=== PATIENT | female | born 1940 | race Caucasian/White ===

== ENCOUNTER 2018-02-01 15:29 | Inpatient (IN) | payer MEDICARE, OTHER ==
--- NOTE | 2018-02-01 16:02 | ERNOTE ---
Dyspnea - General Presenting Symptoms: shortness of breath Time Seen by Provider: 02/01/18 15:53 Source: patient Exam Limitations: no limitations - Immun/Allergies/Home Medications Immunizations: IMMUNIZATION HX Immunizations Up to Date Yes History of Influenza Vaccine Yes Hx Pneumococcal Vaccination Yes Allergies/Adverse Reactions: Allergies venom-honey bee [bee venom (honey bee)] Allergy (Verified 07/30/15 01:17) penicillin G Adverse Reaction (Intermediate, Verified 07/30/15 01:17) Itching Sulfa (Sulfonamide Antibiotics) Adverse Reaction (Verified 07/30/15 01:17) Home Medications: HOME MEDICATIONS Aspirin [Aspirin Enteric Coated] 81 mg PO DAILY #0 tablet.dr 06/02/12 [Last Taken 01/09/15] Atorvastatin Calcium [Lipitor] 40 mg PO HS #30 tablet 06/02/12 [Last Taken 01/09] Multivitamin [Animal Shapes] 1 each PO DAILY 01/10/15 [Last Taken 01/09/15] Nitroglycerin [Nitro-Bid 2% Ointment] 1 inch TD Q6H packet 01/10/15 [Last Taken Unknown] Pantoprazole Sodium [Protonix] 20 mg PO DAILY 01/10/15 [Last Taken 01/09/15] Folic Acid 0.8 mg PO DAILY 05/29/15 [Last Taken Unknown] Lisinopril [Zestril] 10 mg PO DAILY 05/29/15 [Last Taken Unknown] Spironolactone [Aldactone] 25 mg PO DAILY 05/29/15 [Last Taken Unknown] glipiZIDE [Glucotrol Xl] 5 mg PO DAILY 05/29/15 [Last Taken Unknown] epinephrine 0.3 mg/0.3 mL injection, auto-injector 0.3 mg IM Q10-15M PRN #1 ea 01/29/18 [Last Taken Unknown] Furosemide [Lasix] 60 mg PO QAM 02/01/18 [Last Taken Unknown] - History of Present Illness Narrative: Patient been progressively more short of breath over the last 3-4 days and states that she is coughing up some phlegm now Severity: moderate 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 Initiating event: Reports: upper resp illness Frequency of episodes: Reports: occassional episodes Modifying Factors - (Improves): Reports: rest Modifying Factors (Worsens): Reports: activity Associated Symptoms-Dyspnea: Reports: cough Review of Systems - Review of Systems Constitutional: Present: See HPI EYE: Present: no symptoms reported ENT: Present: no symptoms reported Respiratory: Present: See HPI Cardiology: Present: no symptoms reported Gastrointestinal/Abdominal: Present: no symptoms reported Genitourinary: Present: no symptoms reported Musculoskeletal: Present: no symptoms reported Skin: Present: no symptoms reported Neurological: Present: no symptoms reported Endocrine: Present: no symptoms reported Hematologic/Lymphatic: Present: no symptoms reported Psych: Present: no symptoms reported Medical History (Last Updated 02/01/18 @ 16:24 by Arvind Madrigal RN) Congestive heart failure Diabetes mellitus type II, non insulin dependent Gastroesophageal reflux Heel callus Hx of CABG Hyperlipidemia Hypertension S/P arthroscopic surgery of right knee S/P wrist surgery Surgical History: Surgical History (Last Updated 02/01/18 @ 16:24 by Arvind Madrigal RN) H/O hernia repair History of cardiac cath History of cholecystectomy Social History: Preferred Language Citizen Of [place] Do you have any mandaeism or No cultural preference? Smoking Status Never smoker Abuse History No History of abuse Psych History Hx of Depression Alcohol Use none Drug Use none Physical Exam - Physical Exam General Appearance: Present: wd/wn, alert, mild distress Head Exam: Present: normal inspection, no evidence of injury Eye Exam: Normal inspection: bilateral, PERRL: bilateral Ears, Nose, Throat: Present: normal ENT inspection, H, normal pharynx Neck: Present: normal inspection, nontender Respiratory: Present: no respiratory distress, no accessory muscle use, chest nontender, lungs clear, other - fine coarse breath sounds Cardiovascular/Chest: Present: regular rate, rhythm, no murmur, normal peripheral pulses, extra beats Gastrointestinal/Abdominal: Present: normal bowel sounds, nontender, nondistended, soft, no organomegaly Rectal Exam: Present: deferred Pelvic Exam: Present: deferred Back Exam: Present: normal inspection, normal range of motion Extremity Exam: Present: normal inspection, non-tender, normal range of motion, extremity edema - chronic dependent Neurological Exam: Present: alert, oriented, normal mood/affect Skin Exam: Present: normal color, warm/dry Lymphatic Exam: Present: no adenopathy ED Progress - Results and Orders Patient's Lab Results:: I have reviewed the patient's lab results. - Vital Signs Patient's Vital Signs:: I have reviewed the patient's vital signs. Vital Signs: Vital Signs 02/01/18 15:40 02/01/18 15:56 Pulse Rate 83 95 Respiratory Rate 16 Blood Pressure 158/100 H O2 Sat by Pulse Oximetry 95 - EKG EKG: atrial fibrillation EKG read: Reviewed by me - X-Ray X-Ray #1 X-Ray: chest - chest x-ray reviewed by me Interpretation: Reviewed by me - Progress/Reassessment Chief Complaint: Dyspnea Plan - Plan Plan: When questioned about the underlying atrial fibrillation the patient was unable to give me any clear history on that. He states that she has been short of breath for 2-3 weeks and is getting progressively worse, and I suspect that possibly this is all from atrial fibrillation. I'm going to give the patient a dose of Lovenox tonight and the attending physician can get an echocardiogram in the morning to try to see if there is anything else going on in there. I am suspecting that she may need to be on anticoagulation for 4 weeks before we consider any cardioversion. We will place a Mustafa catheter in the short-term, as the patient states she has a weak bladder and we would like to do I's and O' s in any event. Departure Clinical Impression: CHF exacerbation Qualifiers: Heart failure type: systolic Qualified Code(s): I50.23 - Acute on chronic systolic (congestive) heart failure Atrial fibrillation Qualifiers: Atrial fibrillation type: unspecified Qualified Code(s): I48.91 - Unspecified atrial fibrillation - Departure Disposition: Still a patient Condition: Fair Referrals: Chente Plata DO [Primary Care Provider] -
[2018-02-01 16:30] LABS: Hematocrit 34.7 % (37.0-47.0); Hemoglobin 10.7 gm/dL (12.5-16.0); Mean Cell Volume 83.8 fl (78-100); Mean Corpuscular Hemoglobin 25.8 pg (27-31); Mean Corpuscular Hgb Conc 30.8 g/dl (32-36); Mean Platelet Volume 11.1 fl (8-12.5); Neutrophil # 4.9 K/mm3 (1.3-6.0); Neutrophil % 55.4 % (42-75.0); Platelet Count 205 K/mm3 (150-450); Red Blood Count 4.14 M/mm3 (4.2-5.4); Red Cell Distribution Width 15.8 % (11.5-14.0); White Blood Count 8.8 K/mm3 (4.0-10.5)
[2018-02-01 16:49] LABS: Troponin I Less than 0.017 ng/ml (0.00-0.10)
[2018-02-01 16:51] LABS: ALT 24 U/L (19-67); AST 22 U/L (0-48); Albumin * 3.4 gm/dl (3.4-5.0); Alkaline Phosphatase * 97 U/L (50-170); Anion Gap 15.2 mmol/L (6.8-13.8); BNP * 1353 pg/mL (5-550); BUN/Creatinine Ratio 13.9 (9.0-21.6); Bilirubin, Total 0.8 mg/dL (0.0-1.1); Blood Urea Nitrogen 15 mg/dL (3-23); Calcium * 8.8 mg/dL (7.9-10.9); Carbon Dioxide 23.7 mmol/L (24-32.6); Chloride 106 mmol/L (97-106); Glucose * 138 mg/dL (70-110); Potassium 3.9 mmol/L (3.4-4.6); Sodium 141 mmol/L (132-142)
[2018-02-01] MEDS ORDERED: FUROSEMIDE 10 MG/ML VIAL IV ONE (16:58)
[2018-02-01] MEDS ORDERED: FUROSEMIDE 10 MG/ML VIAL ONE (17:30)
[2018-02-01] MEDS ORDERED: ENOXAPARIN SODIUM 100 MG/ML SYRG SC ONE ×2 (17:47→18:11)
[2018-02-01] MEDS ORDERED: ENOXAPARIN SODIUM 30 MG/0.3 ML SYRG SC STA (18:07)
[2018-02-01] MEDS ORDERED: ENOXAPARIN SODIUM 100 MG/ML SYRG SC STA (18:09)
[2018-02-01] MEDS ORDERED: ENOXAPARIN SODIUM 30 MG/0.3 ML SYRG SC ONE (18:11)
[2018-02-01] MEDS ORDERED: EPINEPHrine 0.3 MG DISP.SYRIN IM PRN (20:10)
[2018-02-01] MEDS ORDERED: NITROGLYCERIN 0.4 MG/TAB BTL SL PRN (20:10)
[2018-02-01] MEDS ORDERED: FUROSEMIDE 10 MG/ML VIAL IV SCH (20:30)
[2018-02-01] MEDS ORDERED: ATORVASTATIN CALCIUM 40 MG TABLET PO SCH (21:00)
[2018-02-01] MEDS: SPIRONOLACTONE 25 MG TABLET PO SCH (21:09)
[2018-02-01] MEDS: ASPIRIN 81 MG TABLET.DR PO SCH (21:09)
[2018-02-01] MEDS ORDERED: WARFARIN SODIUM 5 MG TABLET PO ONE (21:30)
[2018-02-01 21:44] LABS: Prothrombin Time (Patient) 10.6 Seconds (9.0-11.0)
[2018-02-01 21:45] LABS: INR 1.06 INR (0.90-1.10)
--- NOTE | 2018-02-01 21:50 | HP ---
Chief Complaint - Chief Complaint Date of Service: 02/01/18 Time of Service: 20:00 Chief Complaint: Shortness of breath, erythema, rapid weight gain and increased edema lower extr History of Present Illness: 77 years old female adm to the hospital with reports of dyspnea on exertion, increased edema to lower extremities, weight gain and nasal drainage with cough x1 month or more.She denies fever, chills, drainage from leg, chest pain or palpitation.Pt stated she have missed several days dose of all her home medications. Her son was in the hospital and she was more concern about his health and forget to take her medications. She also like to have the taste of salt in her food and have cut back on the amount of salt she use. For the past 3 -4 days the dyspnea getting progressively worse, she is unable to sleep in her bed and have been up most of the might due to coughing. Her son is feeling much better today and she is not doing so well so she decide to come to [facility] ER. While in ER CXR: Finding constant with acute CHF exacerbation, BNP 1353, she had Lasix 80mg x1 and had Mustafa cath inserted for correct I/O.Plan of care discussed with pt, she verbalized understanding and agrees. Medical History (Last Reviewed 02/01/18 @ 19:20 by Susana Blackwood RN) Congestive heart failure Diabetes mellitus type II, non insulin dependent Gastroesophageal reflux Heel callus Hx of CABG Hyperlipidemia Hypertension Myocardial infarct S/P arthroscopic surgery of right knee S/P wrist surgery Surgical History: Surgical History (Last Reviewed 02/01/18 @ 19:20 by Susana Blackwood RN) H/O hernia repair History of cardiac cath History of cholecystectomy Family History: Family History (Last Updated 02/01/18 @ 21:23 by NICO Padilla) Other Patient's brother is Patient's father is Patient's mother is Social History: Patient Lives/Resources With Spouse 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 Smoking Status Never smoker Have you smoked in the past 12 No months Do you dip or chew tobacco No Abuse History No History of abuse Psych History Hx of Depression Alcohol Use none Drug Use none Review Of Systems (GEN) - Review of Systems Generalized/Overall Review: Present: Weight gain EENTM: Present: No Symptoms Reported Respiratory: Present: Cough, Shortness of Breath, Orthopnea Cardiac: Present: No Symptoms Reported Abdominal: Present: No Symptoms Reported Genitourinary: Present: No Symptoms Reported Musculoskeletal: Present: Joint Swelling, Other - lower extr edema Neurological: Present: No Symptoms Reported Skin: Present: Other - erythema and blisters Endocrine: Present: No Symptoms Reported Immunizations: IMMUNIZATION HX Immunizations Up to Date Yes History of Influenza Vaccine Yes Hx Pneumococcal Vaccination Yes Allergies/Adverse Reactions: Allergies Allergy/AdvReac Type Severity Reaction Status Date / Time venom-honey bee Allergy Verified 07/30/15 01:17 [bee venom (honey bee)] penicillin G AdvReac Intermediate Itching Verified 07/30/15 01:17 Sulfa (Sulfonamide AdvReac Verified 07/30/15 01:17 Antibiotics) Home Medications: HOME MEDICATIONS Atorvastatin Calcium [Lipitor] 40 mg PO HS #30 tablet 06/02/12 [Last Taken 01/09] Multivitamin [Animal Shapes] 1 each PO DAILY 01/10/15 [Last Taken 01/09/15] Pantoprazole Sodium [Protonix] 20 mg PO DAILY 01/10/15 [Last Taken 01/09/15] Folic Acid 0.8 mg PO DAILY 05/29/15 [Last Taken Unknown] Lisinopril [Zestril] 10 mg PO DAILY 05/29/15 [Last Taken Unknown] Spironolactone [Aldactone] 25 mg PO DAILY 05/29/15 [Last Taken Unknown] glipiZIDE [Glucotrol Xl] 5 mg PO DAILY 05/29/15 [Last Taken Unknown] epinephrine 0.3 mg/0.3 mL injection, auto-injector 0.3 mg IM Q10-15M PRN #1 ea 01/29/18 [Last Taken Unknown] Aspirin [Aspirin Enteric Coated] 81 mg PO HS 02/01/18 [Last Taken Unknown] Furosemide [Lasix] 60 mg PO QAM 02/01/18 [Last Taken Unknown] Nitroglycerin 0.4 mg SL PRN PRN MDD 3 02/01/18 [Last Taken Unknown] Exam - Exam Vital Signs: Vital Signs - Last Taken Temp 36.7 C 02/01/18 17:53 Pulse 93 02/01/18 18:40 Resp 16 02/01/18 18:40 BP 162/97 H 02/01/18 18:40 Pulse Ox 94 02/01/18 18:40 Constitutional: Present: Alert, Oriented x3, Cooperative, Middle aged, Morbidly obese ENT Exam: Present: hearing grossly normal Eye Exam: bilateral eye: normal inspection Neck: Present: full range of motion Back Exam: Present: normal inspection Breasts: Present: Exam deferred Respiratory: Present: chest non-tender, no respiratory distress, decreased breath sounds, crackles, other - dyspnea on exertion Cardiovascular/Chest: Present: normal peripheral pulses, no chest tenderness, no gallop, irregularly irregular, edema Peripheral Pulses: dorsalis-pedis (R): 2+, dorsalis-pedis (L): 2+ Abdomen: Present: Normal bowel sounds, soft, nontender, nondistended Extremity: Present: inflammation, lower extremity edema, pedal edema, swelling, other - cellulitis, erythema, warm and tender to touch and swelling. Skin Exam: Present: other - cellulitis Lymphatic: Present: no adenopathy Neurologic: Present: oriented x 3, depressed affect, other - pt very tearful Appearance: Present: appropriate appearance, appropriate insight Eye contact: Present: cooperative, good eye contact Thoughts: Present: normal thought pattern, no apparent hallucination Diagnostic Studies: Abnormal Lab Results 02/01/18 02/01/18 Range/Units 16:25 16:25 RBC 4.14 L (4.2-5.4) M/mm3 Hgb 10.7 L (12.5-16.0) gm/dL Hct 34.7 L (37.0-47.0) % MCH 25.8 L (27-31) pg MCHC 30.8 L (32-36) g/dl RDW 15.8 H (11.5-14.0) % Carbon Dioxide 23.7 L (24-32.6) mmol/L Anion Gap 15.2 H (6.8-13.8) mmol/L Est GFR (Non-Af Amer) 53 L D (60-130) mL/min Random Glucose 138 H (70-110) mg/dL B-Natriuretic Peptide 1353 H (5-550) pg/mL Laboratory Results WBC 8.8 K/mm3 (4.0-10.5) 02/01/18 16:25 RBC 4.14 M/mm3 (4.2-5.4) L 02/01/18 16:25 Hgb 10.7 gm/dL (12.5-16.0) L 02/01/18 16:25 Hct 34.7 % (37.0-47.0) L 02/01/18 16:25 MCV 83.8 fl (78-100) 02/01/18 16:25 MCH 25.8 pg (27-31) L 02/01/18 16: MCHC 30.8 g/dl (32-36) L 02/01/18 16:25 RDW 15.8 % (11.5-14.0) H 02/01/18 16:25 Plt Count 205 K/mm3 (150-450) 02/01/18 16:25 MPV 11.1 fl (8-12.5) 02/01/18 16:25 Immature Gran % (Auto) 0.20 % (0.001-0.429) 02/01/18 16: Immature Gran # (Auto) 0.02 K/mm3 (0.000-0.0310) 02/01/18 16:25 Neutrophils % 55.4 % (42-75.0) 02/01/18 16:25 Lymphocytes % 32.9 % (20-51) 02/01/18 16:25 Monocytes % 8.4 % (0.0-9) 02/01/18 16:25 Eosinophils % 2.4 % (0.0-3.0) 02/01/18 16:25 Basophils % 0.7 % (0.0-1.0) 02/01/18 16: Nucleated RBC % 0.0 k/mm3 (0-1) 02/01/18 16:25 Neutrophils # 4.9 K/mm3 (1.3-6.0) 02/01/18 16:25 Lymphocytes # 2.90 k/mm3 (1.5-3.5) 02/01/18 16: Monocytes # 0.7 k/mm3 (0.0-1.0) 02/01/18 16: Eosinophils # 0.2 k/mm3 (0.0-0.7) 02/01/18 16:25 Absolute Basophils 0.1 k/mm3 (0.0-0.1) 02/01/18 16:25 Sodium 141 mmol/L (132-142) 02/01/18 16:25 Plasma Sodium 142 mmol/L (130-142) 02/01/18 16:25 Potassium 3.9 mmol/L (3.4-4.6) 02/01/18 16:25 Chloride 106 mmol/L (97-106) 02/01/18 16:25 Carbon Dioxide 23.7 mmol/L (24-32.6) L 02/01/18 16:25 Anion Gap 15.2 mmol/L (6.8-13.8) H 02/01/18 16:25 BUN 15 mg/dL (3-23) 02/01/18 16:25 Creatinine 1.08 mg/dL (0.4-1.4) 02/01/18 16:25 Est GFR (Non-Af Amer) 53 mL/min (60-130) L D 02/01/18 16:25 BUN/Creatinine Ratio 13.9 (9.0-21.6) 02/01/18 16:25 Random Glucose 138 mg/dL (70-110) H 02/01/18 16:25 Calcium 8.8 mg/dL (7.9-10.9) 02/01/18 16:25 Calcium Adj for Albumin 9.0 mg/dL (8.4-10.2) 02/01/18 16:25 Magnesium 2.0 mg/dL (1.2-2.8) 02/01/18 16:25 Total Bilirubin 0.8 mg/dL (0.0-1.1) 02/01/18 16:25 AST 22 U/L (0-48) 02/01/18 16:25 ALT 24 U/L (19-67) 02/01/18 16:25 Alkaline Phosphatase 97 U/L (50-170) 02/01/18 16:25 Troponin I Less than 0.017 ng/ml (0.00-0.10) 02/01/18 16:25 B-Natriuretic Peptide 1353 pg/mL (5-550) H 02/01/18 16:25 Total Protein 7.0 gm/dL (6.2-8.2) 02/01/18 16:25 Albumin 3.4 gm/dl (3.4-5.0) 02/01/18 16:25 CXR- Finding constant with acute CHF exacerbation Assessment/Plan - Narrative Narrative: CHF [id number] CXR- Finding constant with acute CHF exacerbation pt missed several days out the month of her medication, due to focusing on her son who is in the hospital. BNP 1353 Lasix 80mg x1 given in ER, will continue with Lasix 40mg IV BID Aldactone 25mg now and then daily Mustafa cath for correct I/O and weight pt daily. Monitor CMP daily 02/08/2013 Last Echo Septal akinesia, there is inferior wall akinesia, thin bright LV wall segment suggest MD. Left atrium severely dilated. Right atrium is moderately dilated. Mild MR, right ventricular systolic pressure elevated 55mmHg. Pulmonary HTN.LV EF 60% 2D-Echo tomorrow New Onset A-fib Continue with Telemetry In ER seen on EKG-Afib Chadz score 4 Lovenox 115mg Sc x1 given continue with Lovenox 115mg BID and Coumadin 5mg INR daily and pharmacy to dose Diabetes Accu-check and continue with home dose of medications Consistent carb Low sodium diet Cellulitis lower extre with increased erythema, warmth, unbroken blisters and tender to touch Cleocin 300mg IV Q8hr - Assessment/Plan (1) CHF exacerbation Problem: Acute Qualifiers: Heart failure type: systolic Qualified Code(s): I50.23 - Acute on chronic systolic (congestive) heart failure (2) Diabetes mellitus Problem: Chronic (3) Acute on chronic systolic CHF (congestive heart failure) Problem: Acute (4) Coronary artery disease Problem: Chronic (5) Hyperlipidemia Problem: Chronic (6) Hypertension Problem: Chronic (7) Cellulitis Problem: Acute Qualifiers: Site of cellulitis of extremity: lower extremity (8) GERD (gastroesophageal reflux disease) Problem: Acute (9) Atrial fibrillation Problem: Acute Qualifiers: Atrial fibrillation type: unspecified Qualified Code(s): I48.91 - Unspecified atrial fibrillation (10) Postnasal drip Problem: Acute
[2018-02-01] MEDS: LORATADINE 10 MG TABLET PO SCH (22:28)
[2018-02-02] MEDS: CLINDAMYCIN PHOSPHATE 300 MG in DEXTROSE 5 % IN WATER 50 ML IV SCH ×8 (00:04→23:39)
[2018-02-02 04:24] LABS: Prothrombin Time (Patient) 10.8 Seconds (9.0-11.0)
[2018-02-02 04:25] LABS: INR 1.08 INR (0.90-1.10)
[2018-02-02 04:37] LABS: Anion Gap 11.1 mmol/L (6.8-13.8); BUN/Creatinine Ratio 12.4 (9.0-21.6); Bilirubin, Total 0.7 mg/dL (0.0-1.1); Ca. Corrected For Albumin 8.7 mg/dL (8.4-10.2); Calcium * 8.2 mg/dL (7.9-10.9); Carbon Dioxide 28.1 mmol/L (24-32.6); Chol/HDL Risk Ratio 3.2 mg/dL (3.3-4.4); Potassium 3.2 mmol/L (3.4-4.6); TSH * 1.967 uIU/mL (0.358-3.74); Total Protein 6.2 gm/dL (6.2-8.2)
[2018-02-02] MEDS ORDERED: ENOXAPARIN SODIUM 60 MG/0.6 ML SYRG SC SCH (07:00)
[2018-02-02] MEDS: ENOXAPARIN SODIUM 80 MG, ENOXAPARIN SODIUM 30 MG SC SCH ×4 (07:25→19:40)
[2018-02-02] MEDS: LISINOPRIL 10 MG TABLET PO SCH (09:14)
[2018-02-02] MEDS: SPIRONOLACTONE 25 MG TABLET PO SCH (09:14)
[2018-02-02] MEDS: LORATADINE 10 MG TABLET PO SCH (09:14)
[2018-02-02] MEDS: PANTOPRAZOLE SODIUM 20 MG TABLET.DR PO SCH (09:14)
[2018-02-02] MEDS: glipiZIDE 5 MG TAB.SR.24H PO SCH (09:14)
[2018-02-02] MEDS: MULTIVITAMINS 1 TAB TAB.CHEW PO SCH (09:14)
[2018-02-02] MEDS: FUROSEMIDE 10 MG/ML VIAL IV SCH ×2 (09:15→17:55)
[2018-02-02] MEDS: FOLIC ACID 0.4 MG TABLET PO SCH (09:15)
[2018-02-02] MEDS ORDERED: WARFARIN SODIUM 5 MG TABLET PO SCH (17:00)
[2018-02-02] MEDS ORDERED: ROSUVASTATIN CALCIUM 20 MG TABLET PO SCH (21:00)
[2018-02-02] MEDS: ASPIRIN 81 MG TABLET.DR PO SCH (21:07)
[2018-02-03 05:33] LABS: INR 1.2 INR (0.90-1.10)
[2018-02-03] MEDS: ENOXAPARIN SODIUM 80 MG, ENOXAPARIN SODIUM 30 MG SC SCH ×2 (06:54)
--- NOTE | 2018-02-03 07:15 | DS ---
<Chente Plata - Last Filed: 02/18/18 08:03> Description of Stay: Patient was seen and evaluated by hospitalist, Irina Stevens. Agree with narrative and plan. Patient admitted with acute chf exacerbation and new onset atrial fibrillation. She was diuresed and shortness of breath improved. She was started on coumadin for anticoagulation. She does not need bridging with lovenox , this will not be needed at discharge. Her rate was well controlled. She was educated to avoid sodium. She will follow up with cardiology. Results and Findings: Pending Mircobiology Results 02/01/18 04:00 Blood Blood Culture - Preliminary Lab Pending Results 02/01/18 02/01/18 02/01/18 16:25 16:25 21:30 WBC 8.8 RBC 4.14 L Hgb 10.7 L Hct 34.7 L MCV 83.8 MCH 25.8 L MCHC 30.8 L RDW 15.8 H Plt Count 205 MPV 11.1 Immature Gran % (Auto) 0.20 Immature Gran # (Auto) 0.02 Neutrophils % 55.4 Lymphocytes % 32.9 Monocytes % 8.4 Eosinophils % 2.4 Basophils % 0.7 Nucleated RBC % 0.0 Neutrophils # 4.9 Lymphocytes # 2.90 Monocytes # 0.7 Eosinophils # 0.2 Absolute Basophils 0.1 PT 10.6 INR (Anticoag Therapy) 1.06 Sodium 141 Plasma Sodium 142 Potassium 3.9 Chloride 106 Carbon Dioxide 23.7 L Anion Gap 15.2 H BUN 15 Creatinine 1.08 Est GFR (Non-Af Amer) 53 L D BUN/Creatinine Ratio 13.9 Random Glucose 138 H Calcium 8.8 Calcium Adj for Albumin 9.0 Magnesium 2.0 Total Bilirubin 0.8 AST 22 ALT 24 Alkaline Phosphatase 97 Troponin I Less than 0.017 B-Natriuretic Peptide 1353 H Total Protein 7.0 Albumin 3.4 Triglycerides Cholesterol LDL Cholesterol VLDL Cholesterol HDL Cholesterol Cholesterol/HDL Ratio TSH 02/02/18 02/02/18 02/03/18 04:00 04:00 05:13 WBC RBC Hgb Hct MCV MCH MCHC RDW Plt Count MPV Immature Gran % (Auto) Immature Gran # (Auto) Neutrophils % Lymphocytes % Monocytes % Eosinophils % Basophils % Nucleated RBC % Neutrophils # Lymphocytes # Monocytes # Eosinophils # Absolute Basophils PT 10.8 12.0 H INR (Anticoag Therapy) 1.08 1.20 H Sodium 140 Plasma Sodium 140 Potassium 3.2 L Chloride 104 Carbon Dioxide 28.1 Anion Gap 11.1 BUN 13 Creatinine 1.05 Est GFR (Non-Af Amer) 54 L BUN/Creatinine Ratio 12.4 Random Glucose 112 H Calcium 8.2 Calcium Adj for Albumin 8.7 Magnesium Total Bilirubin 0.7 AST 19 ALT 21 Alkaline Phosphatase 90 Troponin I B-Natriuretic Peptide Total Protein 6.2 Albumin 3.0 L Triglycerides 99 Cholesterol 153 LDL Cholesterol 86 VLDL Cholesterol 20 HDL Cholesterol 47 Cholesterol/HDL Ratio 3.2 L TSH 1.967 Disposition: Home self-care Condition: Fair Referrals: Chente Plata DO [Primary Care Provider] - One Week Leida Plata [Pharmacy] - 02/06/18 1:30 pm ([facility]) Problem Oriented Discharge Instructions to Patient/Family: Warfarin: What You Need to Know, Warfarin Coagulopathy, Heart Failure, [id number], Atrial Fibrillation, [id number], CHF Patient Instructions Additional Patient Instructions (free text): -Please make TCM appointment unless assisted discharge. Thank you! Dorothy @ [phone].Follow up with Dr. Plata on 02-12-18 @ 8:15am. Prescriptions (Any new or edited meds): Furosemide [Lasix] 80 mg PO DAILY #30 tab Warfarin Sodium [Coumadin] 5 mg PO DAILY@1700 #30 tab Complete Home Medications List: Complete Home Medication List: Atorvastatin Calcium [Lipitor] 40 mg PO HS #30 tab 06/02/12 Multivitamin [Animal Shapes] 1 ea PO DAILY 01/10/15 Pantoprazole Sodium [Protonix] 20 mg PO DAILY 01/10/15 Folic Acid 0.8 mg PO DAILY 05/29/15 Lisinopril [Zestril] 10 mg PO DAILY 05/29/15 Spironolactone [Aldactone] 25 mg PO DAILY 05/29/15 glipiZIDE [Glucotrol Xl] 5 mg PO DAILY 05/29/15 epinephrine 0.3 mg/0.3 mL injection, auto-injector 0.3 mg IM Q10-15M PRN #1 ea 01/29/18 Nitroglycerin 0.4 mg SL PRN PRN MDD 3 02/01/18 Furosemide [Lasix] 80 mg PO DAILY #30 tab 02/03/18 Warfarin Sodium [Coumadin] 5 mg PO DAILY@1700 #30 tab 02/03/18 ascorbic acid (vitamin C) 500 mg capsule mg PO 02/06/18 aspirin 81 mg chewable tablet 81 mg PO DAILY 02/06/18 blood sugar diagnostic strips See Dose Instructions .ROUTE .MEDSUPPLY #20 ea carvedilol 3.125 mg tablet 12.5 mg PO BID tab 02/06/18 cholecalciferol (vitamin D3) 400 unit capsule 400 unit PO DAILY 02/06/18 loratadine-pseudoephedrine ER 10 mg-240 mg tablet,extended [id number] 1 tab PO DAILY #90 tab 02/12/18 <RodneyGianniwillem - Last Filed: 02/18/18 19:27> (1) CHF exacerbation Problem: Acute Qualifiers: Heart failure type: systolic Qualified Code(s): I50.23 - Acute on chronic systolic (congestive) heart failure (2) Diabetes mellitus Problem: Chronic (3) Acute on chronic systolic CHF (congestive heart failure) Problem: Acute (4) Coronary artery disease Problem: Chronic (5) Hyperlipidemia Problem: Chronic (6) Hypertension Problem: Chronic (7) Cellulitis Problem: Acute Qualifiers: Site of cellulitis of extremity: lower extremity (8) GERD (gastroesophageal reflux disease) Problem: Acute (9) Atrial fibrillation Problem: Acute Qualifiers: Atrial fibrillation type: unspecified Qualified Code(s): I48.91 - Unspecified atrial fibrillation (10) Postnasal drip Problem: Acute Description of Stay: Date of Admission 02/01/2018 Date of Discharge 02/03/2018 Hospital Course Mrs. Hodge a 77 years old female adm to the hospital with New onset Afib and CHF exacerbation secondary to non-compliance. pt report cough, increased lower extr edema, warmth and erythema to left leg more than right. She has dyspnea on exertion and orthopnea. During this adm her CXR: Finding constant with acute CHF exacerbation, BNP 1353. Adm weight was 114.75kg and at discharge weight 109.3kg.she had Lasix 80mg x1 and had Mustafa cath inserted for correct I/ O.Cellulitis improving gradually to lower extremities.She will continue with cleocin, Coumadin 5mg daily. Plan of care discussed with pt, she verbalized understanding and agrees. Procedures Performed: none Results and Findings: Pending Mircobiology Results 02/01/18 04:00 Blood Blood Culture - Preliminary NO GROWTH 24 HOURS Lab Pending Results 02/01/18 02/01/18 02/01/18 16:25 16:25 21:30 WBC 8.8 RBC 4.14 L Hgb 10.7 L Hct 34.7 L MCV 83.8 MCH 25.8 L MCHC 30.8 L RDW 15.8 H Plt Count 205 MPV 11.1 Immature Gran % (Auto) 0.20 Immature Gran # (Auto) 0.02 Neutrophils % 55.4 Lymphocytes % 32.9 Monocytes % 8.4 Eosinophils % 2.4 Basophils % 0.7 Nucleated RBC % 0.0 Neutrophils # 4.9 Lymphocytes # 2.90 Monocytes # 0.7 Eosinophils # 0.2 Absolute Basophils 0.1 PT 10.6 INR (Anticoag Therapy) 1.06 Sodium 141 Plasma Sodium 142 Potassium 3.9 Chloride 106 Carbon Dioxide 23.7 L Anion Gap 15.2 H BUN 15 Creatinine 1.08 Est GFR (Non-Af Amer) 53 L D BUN/Creatinine Ratio 13.9 Random Glucose 138 H Calcium 8.8 Calcium Adj for Albumin 9.0 Magnesium 2.0 Total Bilirubin 0.8 AST 22 ALT 24 Alkaline Phosphatase 97 Troponin I Less than 0.017 B-Natriuretic Peptide 1353 H Total Protein 7.0 Albumin 3.4 Triglycerides Cholesterol LDL Cholesterol VLDL Cholesterol HDL Cholesterol Cholesterol/HDL Ratio TSH 02/02/18 02/02/18 02/03/18 04:00 04:00 05:13 WBC RBC Hgb Hct MCV MCH MCHC RDW Plt Count MPV Immature Gran % (Auto) Immature Gran # (Auto) Neutrophils % Lymphocytes % Monocytes % Eosinophils % Basophils % Nucleated RBC % Neutrophils # Lymphocytes # Monocytes # Eosinophils # Absolute Basophils PT 10.8 12.0 H INR (Anticoag Therapy) 1.08 1.20 H Sodium 140 Plasma Sodium 140 Potassium 3.2 L Chloride 104 Carbon Dioxide 28.1 Anion Gap 11.1 BUN 13 Creatinine 1.05 Est GFR (Non-Af Amer) 54 L BUN/Creatinine Ratio 12.4 Random Glucose 112 H Calcium 8.2 Calcium Adj for Albumin 8.7 Magnesium Total Bilirubin 0.7 AST 19 ALT 21 Alkaline Phosphatase 90 Troponin I B-Natriuretic Peptide Total Protein 6.2 Albumin 3.0 L Triglycerides 99 Cholesterol 153 LDL Cholesterol 86 VLDL Cholesterol 20 HDL Cholesterol 47 Cholesterol/HDL Ratio 3.2 L TSH 1.967 Discharge Location: Home Discharge Activity: Activity as tolerated Discharge Diet: Low salt, Low fat/chol
--- NOTE | 2018-02-03 08:32 | ECHO ---
This report is available in the EMR
[2018-02-03] MEDS: FUROSEMIDE 10 MG/ML VIAL IV SCH ×2 (10:23→10:30)
[2018-02-03] MEDS: FOLIC ACID 0.4 MG TABLET PO SCH (10:24)
[2018-02-03] MEDS: glipiZIDE 5 MG TAB.SR.24H PO SCH (10:25)
[2018-02-03] MEDS: SPIRONOLACTONE 25 MG TABLET PO SCH (10:25)
[2018-02-03] MEDS: LORATADINE 10 MG TABLET PO SCH (10:25)
[2018-02-03] MEDS: MULTIVITAMINS 1 TAB TAB.CHEW PO SCH (10:25)
[2018-02-03] MEDS: CLINDAMYCIN PHOSPHATE 300 MG in DEXTROSE 5 % IN WATER 50 ML IV SCH ×2 (10:25)
[2018-02-03] MEDS: LISINOPRIL 10 MG TABLET PO SCH (10:26)
[2018-02-03] MEDS: PANTOPRAZOLE SODIUM 20 MG TABLET.DR PO SCH (10:26)
[2018-02-03 13:59] VITALS: BP 110/80
--- NOTE | 2018-02-18 19:37 | PN ---
Subjective - Date and Time Seen Date: 02/02/18 Time: 06:00 Subjective Narrative: Late Entry: patient was seen feeling much better and stated she feels less shortness of breath, however will continue with Lasix and Aldactone while hospitalized. She denies palpitation and orthopnea.Anticipating discharge tomorrow. Objective - Review of Systems Generalized/Overall Review: Reports: No Symptoms Reported Respiratory: Reports: Shortness of Breath Cardiac: Reports: No Symptoms Reported Abdominal: Reports: No Symptoms Reported Genitourinary Symptoms: Reports: No Symptoms Reported Musculoskeletal Complaints: Reports: No Symptoms Reported Neurological: Reports: No Symptoms Reported Skin: Reports: Other - redeness improving Endocrine: Reports: No Symptoms Reported - Vitals Vitals: Last Vital Signs Temp 36.7 C 02/03/18 13:58 Pulse 77 02/03/18 13:58 Resp 16 02/03/18 13:58 BP 110/80 02/03/18 13:58 Pulse Ox 95 02/03/18 13:58 - Exam Constitutional: Present: Alert, Oriented x3, Cooperative ENT Exam: Present: normal ENT inspection Respiratory: Present: chest non-tender, decreased breath sounds, crackles Cardiovascular/Chest: Present: normal peripheral pulses, irregularly irregular, edema Abdomen: Present: Normal bowel sounds /Rectal: Present: Exam deferred Extremity: Present: lower extremity edema, swelling Skin Exam: Present: other - erythema Neurologic: Present: normal mood/affect, oriented x 3 Appearance: Present: appropriate appearance Eye contact: Present: cooperative, good eye contact Cauti Physician Documentation - Urinary Catheter Management Urethral (Mustafa) Date of Insertion: 02/01/18 Time of Insertion: 17:55 Assessment/Plan Plan Narrative: CHF exacerbation: Will continue with low sodium diabetic diet Continue diuresis strict I/O Weight daily, todays weight was 110.8kg from the previous day 113.7kg A-fib continue with Coumadin and monitor INR pharmacy to dose Continue to bridge with Lovenox - Problems/Diagnosis (1) CHF exacerbation Problem: Acute Qualifiers: Heart failure type: systolic Qualified Code(s): I50.23 - Acute on chronic systolic (congestive) heart failure (2) Diabetes mellitus Problem: Chronic (3) Acute on chronic systolic CHF (congestive heart failure) Problem: Acute (4) Coronary artery disease Problem: Chronic (5) Hyperlipidemia Problem: Chronic (6) Hypertension Problem: Chronic (7) Cellulitis Problem: Acute Qualifiers: Site of cellulitis of extremity: lower extremity (8) GERD (gastroesophageal reflux disease) Problem: Acute (9) Atrial fibrillation Problem: Acute Qualifiers: Atrial fibrillation type: unspecified Qualified Code(s): I48.91 - Unspecified atrial fibrillation (10) Postnasal drip Problem: Acute
== END 2018-02-03 14:00 | disposition home or self-care (01) | DRG 292 ==
LOC: ER 15:29 → MS 17:39
PROVIDERS: ADMIT Internal Medicine; ATTEND Family Medicine
CPT/HCPCS: 36415; 51702; 71020; 71046; 80053; 80061; 83519; 83735; 83880; 84443; 84484; 85025; 85610; 87040; 87077; 87186; 93005; 93306; 96372; 96374; 99285

== ENCOUNTER 2018-09-08 11:19 | Observation (INO) ==
--- NOTE | 2018-09-08 11:47 | ERNOTE ---
Trauma/Assault HPI - General Stated Complaint: fall Time Seen by Provider: 09/08/18 11:19 Source: patient, family, EMS Exam Limitations: no limitations - Immun/Allergies/Home Medications Immunizations: IMMUNIZATION HX Immunizations Up to Date Yes History of Influenza Vaccine Yes Hx Pneumococcal Vaccination Yes Allergies/Adverse Reactions: Allergies venom-honey bee [bee venom (honey bee)] Allergy (Unknown, Verified 09/08/18 16:22) Unknown Sulfa (Sulfonamide Antibiotics) Adverse Reaction (Severe, Verified 09/08/18 16:22) Chest tightness penicillin G Adverse Reaction (Intermediate, Verified 09/08/18 16:22) Itching Home Medications: HOME MEDICATIONS Multivitamin [Animal Shapes] 1 ea PO DAILY 01/10/15 [Last Taken 01/09/15] Folic Acid 0.8 mg PO DAILY 05/29/15 [Last Taken Unknown] Lisinopril [Zestril] 10 mg PO DAILY 05/29/15 [Last Taken Unknown] epinephrine 0.3 mg/0.3 mL injection, auto-injector 0.3 mg IM Q10-15M PRN #1 ea 01/29/18 [Last Taken Unknown] Nitroglycerin 0.4 mg SL PRN PRN MDD 3 02/01/18 [Last Taken Unknown] ascorbic acid (vitamin C) 500 mg capsule 1 tab PO DAILY 02/06/18 [Last Taken Unknown] blood sugar diagnostic strips See Dose Instructions .ROUTE .MEDSUPPLY #20 ea 02/06/18 [Last Taken Unknown] cholecalciferol (vitamin D3) 400 unit capsule 400 unit PO DAILY 02/06/18 [Last Taken Unknown] loratadine-pseudoephedrine ER 10 mg-240 mg tablet,extended [id number] 1 tab PO DAILY #90 tab 02/12/18 [Last Taken Unknown] carvedilol 3.125 mg tablet 12.5 mg PO BID #180 tab 05/22/18 [Last Taken Unknown] spironolactone 25 mg tablet 25 mg PO DAILY #90 tab 05/22/18 [Last Taken Unknown] ferrous sulfate 324 mg (65 mg iron) tablet,delayed release 324 mg PO BID #60 tab 07/13/18 [Last Taken Unknown] furosemide 80 mg tablet 160 mg PO DAILY tab 07/13/18 [Last Taken Unknown] gabapentin 300 mg capsule 300 mg PO HS #30 cap 07/13/18 [Last Taken Unknown] mupirocin 2 % topical ointment 1 applic TP BID #30 g 07/13/18 [Last Taken Unknown] glipizide ER 5 mg tablet, extended release 24 hr 5 mg PO DAILY #90 tab 08/28/18 [Last Taken Unknown] pantoprazole 20 mg tablet,delayed release 20 mg PO DAILY #90 tab 08/28/18 [Last Taken Unknown] atorvastatin 20 mg tablet 40 mg PO DAILY #180 tab 09/02/18 [Last Taken Unknown] clopidogrel 75 mg tablet 75 mg PO DAILY #90 tab 09/02/18 [Last Taken Unknown] - History of Present Illness Date (Duration): 09/08/18 Time (Timing): 05:00 Narrative: Patient states that she was in bed, reaching for the phone when she slid out of bed. She landed on the floor face down with the rest of her body elevated on pillows and blankets. She refused any help and lay in that position for about six hours until her son called EMS. She denies any pain. She has been short of breath on and off for a while, no other recent illness, no significant cough. Apparently the heat in their bedroom isn't working and she is chilled at this point. Location Occurred: Reports: home Pain Location: Reports: none Method of Injury: Reports: fall Loss of Consciousness: Reports: no loss of consciousness, remembers the event, remembers coming to hospital Associated Symptoms - Trauma: Denies: headache, neck pain, nausea Review of Systems - Review of Systems Constitutional: Absent: recent illness, fever EYE: Absent: vision changes ENT: Absent: nose congestion, sore throat Respiratory: Present: shortness of breath. Absent: cough Cardiology: Absent: chest pain, palpitations Gastrointestinal/Abdominal: Absent: nausea, vomiting, abdominal pain Genitourinary: Present: no symptoms reported Musculoskeletal: Absent: back pain, neck pain Neurological: Absent: headache, weakness, numbness Medical History (Last Reviewed 09/08/18 @ 16:34 by Grace Parkinson MD) HOLD WARFARIN (Acute) Onset Date: 07/14/18 Per [facility], patient is to hold warfarin until cleared by neurosurgery. Obesity (Chronic) Onset Date: Unknown Diabetes mellitus, type II (Chronic) Onset Date: ~01/15/13 Hypertension (Chronic) Onset Date: Unknown Hyperlipidemia (Chronic) Onset Date: Unknown Gastroesophageal reflux (Chronic) Onset Date: Unknown Diabetes mellitus type II, non insulin dependent (Chronic) Onset Date: Unknown Congestive heart failure (Chronic) Onset Date: Unknown History of CT scan of brain Onset Date: 07/14/18 Impression: 1. small right parafalcine subdural hematoma 2. normal maxillofacial CT 3. negative C-spine CT 4. negative limited upper thoracic spine CT Hospital Admission Onset Date: 07/14/18 Admitted to [facility] on 07/14/2018; subdural hematoma after fall. Discharged h ome on 07/16/2018. Subdural hematoma Onset Date: 07/14/18 small right parafalcine subdural hematoma Venous stasis Onset Date: ~2017 Atrial fibrillation Onset Date: ~2017 Heel callus Onset Date: Unknown Ischemic cardiomyopathy Onset Date: ~2011 Shortness of breath Onset Date: Unknown Arm fracture, left Onset Date: ~2002 surgically repaired Arm fracture, right Onset Date: ~1975 H/O echocardiogram Onset Date: 01/11/15 Mild LVH 55-60% mild mitral regrug and moderate tricuspid regurg mild valvular aortic stenosis. Myocardial infarct Onset Date: ~1994 1994, 2011, 12/2014 Surgical History: Surgical History (Last Reviewed 09/08/18 @ 16:34 by Grace Parkinson MD) H/O hernia repair Onset Date: ~1948 double inguinal History of cardiac cath History of cholecystectomy Onset Date: ~1989 Hx of CABG Onset Date: ~1997 S/P arthroscopic surgery of right knee Onset Date: 08/19/06 Dr. Chong, [facility]. meniscectomy S/P wrist surgery Onset Date: 03/25/02 Dr Maxwell-left ORIF distal radius/ulnar fx w/application of external fixator. 04/30/02-removal of external fixator. Family History: Family History (Last Reviewed 09/08/18 @ 16:22 by Radha Beltran RN) Brother , age 55 Cancer lung Father , age 83 Emphysema lung Mother , age 39, ruptured tubal No problems noted. Other Patient's brother is Patient's father is Patient's mother is Social History: Preferred Language Moh[place] Smoking Status Never smoker Abuse History No History of abuse Psych History Hx of Depression Alcohol Use none Drug Use none (Last Updated 08/14/18 @ 00:23 by Chente Plata, DO) No Social History Section defined Detailed Trauma Exam Best Eye Response ([place]): (4) open spontaneously Best Verbal Response (Araceli): (5) oriented Best Motor Response ([place]): (6) obeys commands [place] Total: 15 General Appearance: Present: alert, no acute distress Head Injury: Present: no tenderness on palpate, active bleeding, ecchymosis, lacerations, other - patient has significant edema on her forehead, around both eyes and upper lip to were I didn't recognize the patient Neurological Exam: Present: alert, oriented x 4, no motor/sensory deficits Neck Exam: Present: non-tender, full range of motion, normal alignment Nexus Clearance: Present: Nexus criteria negative Eye Exam: Normal inspection: bilateral, PERRL: bilateral, EOMI: bilateral, Other: bilateral - eye lid edema ENT Exam: Present: nml ext. inspection Chest/Respiratory Exam: Present: nml inspection, chest non-tender, decreased breath sounds, wheezes - few, other - prolonged expiration, increased rate Cardiovascular Exam: Present: regular rate, rhythm, no murmur Abdominal Exam: Present: soft, non-tender, no distention, normal bowel sounds Skin Exam: Present: normal color, warm/dry RU Extremity: Present: normal inspection, normal range of motion, non-tender, no edema MEGAN Extremity: Present: normal inspection, normal range of motion, non-tender, no edema RL Extremity: Present: normal inspection, normal range of motion, non-tender, no edema LL Extremity: Present: normal inspection, normal range of motion, non-tender, no edema - C-Spine cleared by: Neg history & exam - C-Collar: C-Collar:: Left in place - T, L-Spine cleared by: Neg hx and exam Progress - Results and Orders Patient's Lab Results:: I have reviewed the patient's lab results. - Vital Signs Patient's Vital Signs:: I have reviewed the patient's vital signs. Vital Signs: Vital Signs 09/08/18 11:26 Temperature 36.0 C Pulse Rate 97 Respiratory Rate 28 H Blood Pressure 99/81 O2 Sat by Pulse Oximetry 92 L - EKG EKG #1 EKG: atrial fibrillation, other - poor quality EKG read: Interp. by me - X-Ray X-Ray #1 X-Ray: chest - 1. Pulmonary vascular congestion/interstitial edema suggested. Interpretation: Reviewed by me - Progress/Reassessment Chief Complaint: Fall Progress Note-Subjective: 09/08/18 14:05 facial edema improving 09/08/18 15:08 patient urinating after lasix, edema improving discussed possible pneumonia diagnosis with infiltrate and elevated WBC patient agreed to admission 09/08/18 15:11 discussed with mariama Gu to admit for pneumonia and CHF PSI 96, class IV Departure Clinical Impression: Pneumonia Qualifiers: Pneumonia type: due to unspecified organism Laterality: bilateral Lung location: lower lobe of lung Qualified Code(s): J18.1 - Lobar pneumonia, unspecified organism CHF exacerbation Qualifiers: Heart failure type: unspecified Qualified Code(s): I50.9 - Heart failure, unspecified - Departure Disposition: Still a patient Condition: Stable Critical Care Time - Critical Care Critical Time Spent:: No
[2018-09-08 12:31] LABS: Carbon Dioxide 21.5 mmol/L (24-32.6); Potassium 3.7 mmol/L (3.4-4.6)
[2018-09-08 12:32] LABS: Troponin I 0.438 ng/mL (0.00-0.10)
[2018-09-08 12:44] LABS: Hematocrit 31.7 % (37.0-47.0); Hemoglobin 9.5 gm/dL (12.5-16.0); Mean Cell Volume 74.2 fl (78-100); Mean Corpuscular Hemoglobin 22.2 pg (27-31); Neutrophil # 13.5 K/mm3 (1.3-6.0); Neutrophil % 76.4 % (42-75.0); Platelet Count 339 K/mm3 (150-450); Red Blood Count 4.27 M/mm3 (4.2-5.4); Red Cell Distribution Width 19.5 % (11.5-14.0); White Blood Count 17.6 K/mm3 (4.0-10.5)
[2018-09-08 13:00] LABS: Anion Gap 15.2 mmol/L (6.8-13.8); BUN/Creatinine Ratio 15.2 (9.0-21.6); Calcium * 8.9 mg/dL (7.9-10.9)
[2018-09-08 13:01] LABS: Albumin * 2.9 gm/dl (3.4-5.0); Bilirubin, Total 0.9 mg/dL (0.0-1.1); Ca. Corrected For Albumin 9.5 mg/dL (8.4-10.2); Total Protein 6.8 gm/dL (6.2-8.2)
[2018-09-08] MEDS ORDERED: FUROSEMIDE 10 MG/ML VIAL IV ONE (14:04)
[2018-09-08] MEDS ORDERED: cefTRIAXone SODIUM 1,000 MG/100 ML BAG IV ONE (15:08)
[2018-09-08] MEDS ORDERED: AZITHROMYCIN 250 MG TABLET PO ONE (15:09)
[2018-09-08] MEDS ORDERED: ALBUTEROL SULFATE/IPRATROPIUM 3 ML NEBU IH PRN (16:01)
--- NOTE | 2018-09-08 17:17 | HP ---
Chief Complaint - Chief Complaint Date of Service: 09/08/18 Time of Service: 16:56 Chief Complaint: Shortness of breath History of Present Illness: Ce is a 78 yo female who presented to the [facility] ER by EMS after worsening weakness and shortness of breath. She reports this morning she was reaching for the phone in bed when she got twisted in the blankets and accidentally slid out of bed gently. Once on the ground she was too weak to get up off the ground. She crawled around on the ground for several hours as she nor her were able to help her up. They called EMS who brought her to the ER. She reports cough and shortness of breath for the past week. She denies fever, chills, nausea, or vomiting. She reports increased weight and swelling over the past week. Medical History (Last Reviewed 09/08/18 @ 16:34 by Grace Parkinson MD) HOLD WARFARIN (Acute) Onset Date: 07/14/18 Per [facility], patient is to hold warfarin until cleared by neurosurgery. Obesity (Chronic) Onset Date: Unknown Diabetes mellitus, type II (Chronic) Onset Date: ~01/15/13 Hypertension (Chronic) Onset Date: Unknown Hyperlipidemia (Chronic) Onset Date: Unknown Gastroesophageal reflux (Chronic) Onset Date: Unknown Diabetes mellitus type II, non insulin dependent (Chronic) Onset Date: Unknown Congestive heart failure (Chronic) Onset Date: Unknown History of CT scan of brain Onset Date: 07/14/18 Impression: 1. small right parafalcine subdural hematoma 2. normal maxillofacial CT 3. negative C-spine CT 4. negative limited upper thoracic spine CT Hospital Admission Onset Date: 07/14/18 Admitted to [facility] on 07/14/2018; subdural hematoma after fall. Discharged home on 07/16/2018. Subdural hematoma Onset Date: 07/14/18 small right parafalcine subdural hematoma Venous stasis Onset Date: ~2017 Atrial fibrillation Onset Date: ~2017 Heel callus Onset Date: Unknown Ischemic cardiomyopathy Onset Date: ~2011 Shortness of breath Onset Date: Unknown Arm fracture, left Onset Date: ~2002 surgically repaired Arm fracture, right Onset Date: ~1975 H/O echocardiogram Onset Date: 01/11/15 Mild LVH 55-60% mild mitral regrug and moderate tricuspid regurg mild valvular aortic stenosis. Myocardial infarct Onset Date: ~1994 1994, 2011, 12/2014 Surgical History: Surgical History (Last Reviewed 09/08/18 @ 16:34 by Grace Parkinson MD) H/O hernia repair Onset Date: ~1948 double inguinal History of cardiac cath History of cholecystectomy Onset Date: ~1989 Hx of CABG Onset Date: ~1997 S/P arthroscopic surgery of right knee Onset Date: 08/19/06 Dr. Chong, [facility]. meniscectomy S/P wrist surgery Onset Date: 03/25/02 Dr Maxwell-left ORIF distal radius/ulnar fx w/application of external fixator. 04/30/02-removal of external fixator. Family History: Family History (Last Reviewed 09/08/18 @ 16:22 by Radha Beltran RN) Brother , age 55 Cancer lung Father , age 83 Emphysema lung Mother , age 39, ruptured tubal No problems noted. Other Patient's brother is Patient's father is Patient's mother is Social History: Patient Lives/Resources Home Utilized Preferred Language Hebrew Smoking Status Never smoker Have you smoked in the past 12 No months Do you dip or chew tobacco No Abuse History No History of abuse Psych History Hx of Depression Alcohol Use none Drug Use none (Last Updated 08/14/18 @ 00:23 by Chente Plata DO) No Social History Section defined Review Of Systems (GEN) - Review of Systems Generalized/Overall Review: Present: Weakness, Fatigue, Weight gain. Absent: Chills, Fever EENTM: Present: No Symptoms Reported Respiratory: Present: Cough, Shortness of Breath, Orthopnea. Absent: Wheezing Cardiac: Present: Edema. Absent: Chest Pain, Palpitations Abdominal: Absent: Nausea, Vomiting, Hematemesis, Abdominal Pain Genitourinary: Present: No Symptoms Reported Musculoskeletal: Present: No Symptoms Reported Neurological: Present: No Symptoms Reported Skin: Present: No Symptoms Reported Endocrine: Present: No Symptoms Reported Immunizations: IMMUNIZATION HX Immunizations Up to Date Yes History of Influenza Vaccine Yes Hx Pneumococcal Vaccination Yes Allergies/Adverse Reactions: Allergies Allergy/AdvReac Type Severity Reaction Status Date / Time venom-honey bee Allergy Unknown Unknown Verified 09/08/18 16:22 [bee venom (honey bee)] Sulfa (Sulfonamide AdvReac Severe Chest Verified 09/08/18 16:22 Antibiotics) tightness penicillin G AdvReac Intermediate Itching Verified 09/08/18 16:22 Home Medications: HOME MEDICATIONS Multivitamin [Animal Shapes] 1 ea PO DAILY 01/10/15 [Last Taken 01/09/15] Folic Acid 0.8 mg PO DAILY 05/29/15 [Last Taken Unknown] Lisinopril [Zestril] 10 mg PO DAILY 05/29/15 [Last Taken Unknown] epinephrine 0.3 mg/0.3 mL injection, auto-injector 0.3 mg IM Q10-15M PRN #1 ea 01/29/18 [Last Taken Unknown] Nitroglycerin 0.4 mg SL PRN PRN MDD 3 02/01/18 [Last Taken Unknown] ascorbic acid (vitamin C) 500 mg capsule 1 tab PO DAILY 02/06/18 [Last Taken Unknown] blood sugar diagnostic strips See Dose Instructions .ROUTE .MEDSUPPLY #20 ea 02/06/18 [Last Taken Unknown] cholecalciferol (vitamin D3) 400 unit capsule 400 unit PO DAILY 02/06/18 [Last Taken Unknown] loratadine-pseudoephedrine ER 10 mg-240 mg tablet,extended [id number] 1 tab PO DAILY #90 tab 02/12/18 [Last Taken Unknown] carvedilol 3.125 mg tablet 12.5 mg PO BID #180 tab 05/22/18 [Last Taken Unknown] spironolactone 25 mg tablet 25 mg PO DAILY #90 tab 05/22/18 [Last Taken Unknown] ferrous sulfate 324 mg (65 mg iron) tablet,delayed release 324 mg PO BID #60 tab 07/13/18 [Last Taken Unknown] furosemide 80 mg tablet 160 mg PO DAILY tab 07/13/18 [Last Taken Unknown] gabapentin 300 mg capsule 300 mg PO HS #30 cap 07/13/18 [Last Taken Unknown] mupirocin 2 % topical ointment 1 applic TP BID #30 g 07/13/18 [Last Taken Unknown] glipizide ER 5 mg tablet, extended release 24 hr 5 mg PO DAILY #90 tab 08/28/18 [Last Taken Unknown] pantoprazole 20 mg tablet,delayed release 20 mg PO DAILY #90 tab 08/28/18 [Last Taken Unknown] atorvastatin 20 mg tablet 40 mg PO DAILY #180 tab 09/02/18 [Last Taken Unknown] clopidogrel 75 mg tablet 75 mg PO DAILY #90 tab 09/02/18 [Last Taken Unknown] Exam - Exam Vital Signs: Vital Signs - Last Taken Temp 36.4 C 09/08/18 15:59 Pulse 102 H 09/08/18 16:00 Resp 23 H 09/08/18 16:00 BP 120/58 09/08/18 16:00 Pulse Ox 100 09/08/18 16:00 Constitutional: Present: Alert, Oriented x3, Cooperative, No distress, Obese ENT Exam: Present: hearing grossly normal Eye Exam: bilateral eye: normal inspection Respiratory: Present: crackles - Bilateral base Cardiovascular/Chest: Present: no murmur, irregularly irregular Peripheral Pulses: radial (R): 2+, radial (L): 2+ Abdomen: Present: Normal bowel sounds, soft, nontender, nondistended Extremity: Present: lower extremity edema - 2+ Skin Exam: Present: normal color, warm/dry, no cyanosis Lymphatic: Present: no adenopathy Neurologic: Present: no motor/sensory deficits, alert, normal mood/affect, oriented x 3 Appearance: Present: appropriate appearance, appropriate insight Eye contact: Present: cooperative, good eye contact, normal speech Thoughts: Present: normal thought pattern, no apparent hallucination Diagnostic Studies: Abnormal Lab Results 09/08/18 09/08/18 09/08/18 Range/Units 11:41 12:07 12:33 WBC 17.6 H (4.0-10.5) K/mm3 Hgb 9.5 L (12.5-16.0) gm/dL Hct 31.7 L (37.0-47.0) % MCV 74.2 L (78-100) fl MCH 22.2 L (27-31) pg MCHC 30.0 L (32-36) g/dl RDW 19.5 H (11.5-14.0) % Immature Gran % (Auto) 1.00 H (0.001-0.429) % Immature Gran # (Auto) 0.18 H (0.000-0.0310) K/mm3 Neutrophils % 76.4 H (42-75.0) % Lymphocytes % 13.5 L (20-51) % Neutrophils # 13.5 H (1.3-6.0) K/mm3 Monocytes # 1.1 H (0.0-1.0) k/mm3 pO2 76.7 L (83.0-108.0) mmHg HCO3 19.9 L (21.0-28.0) mmol/L Base Excess -4.6 L (-2.0-3.0) mmol/L Chloride 107 H (97-106) mmol/L Carbon Dioxide 21.5 L (24-32.6) mmol/L Anion Gap 15.2 H (6.8-13.8) mmol/L Est GFR (Non-Af Amer) 54 L D (60-130) mL/min Random Glucose 153 H (70-110) mg/dL Lactic Acid, Venous (0.4-2.0) mmol/L ALT 13 L (19-67) U/L Troponin I 0.438 H* (0.00-0.10) ng/mL B-Natriuretic Peptide 1139 H (5-550) pg/mL Albumin 2.9 L (3.4-5.0) gm/dl 09/08/18 Range/Units 14:25 WBC (4.0-10.5) K/mm3 Hgb (12.5-16.0) gm/dL Hct (37.0-47.0) % MCV (78-100) fl MCH (27-31) pg MCHC (32-36) g/dl RDW (11.5-14.0) % Immature Gran % (Auto) (0.001-0.429) % Immature Gran # (Auto) (0.000-0.0310) K/mm3 Neutrophils % (42-75.0) % Lymphocytes % (20-51) % Neutrophils # (1.3-6.0) K/mm3 Monocytes # (0.0-1.0) k/mm3 pO2 (83.0-108.0) mmHg HCO3 (21.0-28.0) mmol/L Base Excess (-2.0-3.0) mmol/L Chloride (97-106) mmol/L Carbon Dioxide (24-32.6) mmol/L Anion Gap (6.8-13.8) mmol/L Est GFR (Non-Af Amer) (60-130) mL/min Random Glucose (70-110) mg/dL Lactic Acid, Venous 2.6 H* (0.4-2.0) mmol/L ALT (19-67) U/L Troponin I (0.00-0.10) ng/mL B-Natriuretic Peptide (5-550) pg/mL Albumin (3.4-5.0) gm/dl Laboratory Results WBC 17.6 K/mm3 (4.0-10.5) H 09/08/18 12:33 RBC 4.27 M/mm3 (4.2-5.4) 09/08/18 12:33 Hgb 9.5 gm/dL (12.5-16.0) L 09/08/18 12:33 Hct 31.7 % (37.0-47.0) L 09/08/18 12: MCV 74.2 fl (78-100) L 09/08/18 12: MCH 22.2 pg (27-31) L 09/08/18: MCHC 30.0 g/dl (32-36) L 09/08/18 12: RDW 19.5 % (11.5-14.0) H 09/08/18 12: Plt Count 339 K/mm3 (150-450) 09/08/18 12: MPV 11.0 fl (8-12.5) 09/08/18 12:33 Immature Gran % (Auto) 1.00 % (0.001-0.429) H 09/08/18 12: Immature Gran # (Auto) 0.18 K/mm3 (0.000-0.0310) H 09/08/18 12:33 Neutrophils % 76.4 % (42-75.0) H 09/08/18 12:33 Lymphocytes % 13.5 % (20-51) L 09/08/18 12:33 Monocytes % 6.5 % (0.0-9) 09/08/18 12:33 Eosinophils % 2.3 % (0.0-3.0) 09/08/18 12: Basophils % 0.3 % (0.0-1.0) 09/08/18 12:33 Nucleated RBC % 0.0 k/mm3 (0-1) 09/08/18 12:33 Neutrophils # 13.5 K/mm3 (1.3-6.0) H 09/08/18 12: Lymphocytes # 2.37 k/mm3 (1.5-3.5) 09/08/18 12:33 Monocytes # 1.1 k/mm3 (0.0-1.0) H 09/08/18 12:33 Eosinophils # 0.4 k/mm3 (0.0-0.7) 09/08/18 12:33 Absolute Basophils 0.1 k/mm3 (0.0-0.1) 09/08/18 12:33 pCO2 34.6 mmHg (32.0-45.0) 09/08/18 11:41 pO2 76.7 mmHg (83.0-108.0) L 09/08/18 11:41 HCO3 19.9 mmol/L (21.0-28.0) L 09/08/18 11:41 Total CO2 21.0 mmol/L (19.0-24.0) 09/08/18 11:41 Base Excess -4.6 mmol/L (-2.0-3.0) L 09/08/18 11:41 ABG pH 7.38 (7.35-7.45) 09/08/18 11:41 ABG O2 Sat (Measured) 95.2 % (94.0-98.0) 09/08/18 11:41 Sodium 140 mmol/L (132-142) 09/08/18 12:07 Plasma Sodium 141 mmol/L (130-142) 09/08/18 12:07 Potassium 3.7 mmol/L (3.4-4.6) 09/08/18 12:07 Chloride 107 mmol/L (97-106) H 09/08/18 12:07 Carbon Dioxide 21.5 mmol/L (24-32.6) L 09/08/18 12:07 Anion Gap 15.2 mmol/L (6.8-13.8) H 09/08/18 12:07 BUN 16 mg/dL (3-23) 09/08/18 12:07 Creatinine 1.05 mg/dL (0.4-1.4) 09/08/18 12:07 Est GFR (Non-Af Amer) 54 mL/min (60-130) L D 09/08/18 12:07 BUN/Creatinine Ratio 15.2 (9.0-21.6) 09/08/18 12:07 Random Glucose 153 mg/dL (70-110) H 09/08/18 12:07 Lactic Acid, Venous 2.6 mmol/L (0.4-2.0) H* 09/08/18 14:25 Calcium 8.9 mg/dL (7.9-10.9) 09/08/18 12:07 Calcium Adj for Albumin 9.5 mg/dL (8.4-10.2) 09/08/18 12:07 Total Bilirubin 0.9 mg/dL (0.0-1.1) 09/08/18 12:07 AST 24 U/L (0-48) 09/08/18 12:07 ALT 13 U/L (19-67) L 09/08/18 12:07 Alkaline Phosphatase 129 U/L (50-170) 09/08/18 12:07 Troponin I 0.438 ng/mL (0.00-0.10) H* 09/08/18 12:07 B-Natriuretic Peptide 1139 pg/mL (5-550) H 09/08/18 12:07 Total Protein 6.8 gm/dL (6.2-8.2) 09/08/18 12:07 Albumin 2.9 gm/dl (3.4-5.0) L 09/08/18 12:07 Assessment/Plan - Narrative Narrative: Ce is a 78 yo female with: 1) CHF Exacerbation - Elevate BNP of 1100, chest xray with vascular congestion. Will treat with IV lasix q6hr. Will admit to observation as she is not hypoxic and in no respiratory distress. 2) Community Acquired Pneumonia - Treat with azithromycin/rocephin. Cornet. WBC of 17K. Chest xray shows potential pneumonia. Pneumonia severity score indicates outpatient treat as possibility. Will admit for a trial of observation and anticipate discharge to home tomorrow. - Assessment/Plan (1) Pneumonia Problem: Acute Qualifiers: Pneumonia type: due to unspecified organism Laterality: bilateral Lung location: lower lobe of lung Qualified Code(s): J18.1 - Lobar pneumonia, unspecified organism (2) CHF exacerbation Problem: Acute Qualifiers: Heart failure type: unspecified Qualified Code(s): I50.9 - Heart failure, unspecified
[2018-09-08] MEDS: SPIRONOLACTONE 25 MG TABLET PO SCH (17:49)
[2018-09-08] MEDS ORDERED: ROSUVASTATIN CALCIUM 20 MG TABLET PO SCH (21:00)
[2018-09-08] MEDS ORDERED: GABAPENTIN 300 MG CAPSULE PO SCH (21:00)
[2018-09-08] MEDS: FUROSEMIDE 10 MG/ML VIAL IV SCH (21:48)
[2018-09-08] MEDS: CARVEDILOL 12.5 MG TABLET PO SCH (21:52)
[2018-09-08] MEDS: FERROUS SULFATE 325 MG TABLET PO SCH (21:53)
[2018-09-09] MEDS ORDERED: ACETAMINOPHEN 500 MG TABLET PO PRN (00:29)
[2018-09-09] MEDS: FUROSEMIDE 10 MG/ML VIAL IV SCH ×2 (02:44→08:41)
[2018-09-09 05:42] LABS: Mean Corpuscular Hemoglobin 22.3 pg (27-31); Mean Corpuscular Hgb Conc 30.1 g/dl (32-36); Mean Platelet Volume 10.5 fl (8-12.5); Neutrophil # 5.5 K/mm3 (1.3-6.0); Neutrophil % 52.5 % (42-75.0); Red Blood Count 3.46 M/mm3 (4.2-5.4); Red Cell Distribution Width 19.5 % (11.5-14.0); White Blood Count 10.4 K/mm3 (4.0-10.5)
[2018-09-09 06:12] LABS: Albumin * 2.5 gm/dl (3.4-5.0); BUN/Creatinine Ratio 13.4 (9.0-21.6); Bilirubin, Total 0.9 mg/dL (0.0-1.1); Ca. Corrected For Albumin 9.5 mg/dL (8.4-10.2); Calcium * 8.6 mg/dL (7.9-10.9); Carbon Dioxide 24.5 mmol/L (24-32.6); Potassium 3.5 mmol/L (3.4-4.6)
[2018-09-09 06:46] LABS: Hemoglobin 8.3 gm/dL (12.5-16.0)
[2018-09-09 06:47] LABS: Hematocrit 27.9 % (37.0-47.0)
[2018-09-09 06:52] LABS: Platelet Count 340 K/mm3 (150-450)
[2018-09-09] MEDS ORDERED: PANTOPRAZOLE SODIUM 20 MG TABLET.DR PO SCH (07:00)
[2018-09-09] MEDS: CARVEDILOL 12.5 MG TABLET PO SCH (08:48)
[2018-09-09] MEDS: SPIRONOLACTONE 25 MG TABLET PO SCH (08:48)
[2018-09-09] MEDS: FERROUS SULFATE 325 MG TABLET PO SCH (08:49)
[2018-09-09] MEDS ORDERED: CHOLECALCIFEROL 400 UNIT TABLET PO SCH (09:00)
[2018-09-09] MEDS ORDERED: FOLIC ACID 0.4 MG TABLET PO SCH (09:00)
[2018-09-09] MEDS ORDERED: LISINOPRIL 10 MG TABLET PO SCH (09:00)
--- NOTE | 2018-09-09 11:03 | DS ---
(1) CHF exacerbation Problem: Acute Qualifiers: Heart failure type: unspecified Qualified Code(s): I50.9 - Heart failure, unspecified (2) Pneumonia Problem: Acute Qualifiers: Pneumonia type: due to unspecified organism Laterality: bilateral Lung location: lower lobe of lung Qualified Code(s): J18.1 - Lobar pneumonia, unspecified organism Description of Stay: Ce is a 78 yo female admitted for CHF exacerbation with elevated BNP, shortness of breath, fatigue, weakness, and vascular congestion on chest xray. She was given Lasix 60mg IV q6 hours and diuresed well. She lost about 3kg of fluid based on bed scale. She is feeling better and ready for discharge. WBC improved from 17k to 10k. There is questionable pneumonia on chest xray and due to her shortness of breath, cough, and leukocytosis that she presented with I will lean on the side of treating pneumonia with antibiotics and send her home for outpatient treatment. Procedures Performed: none Results and Findings: Lab Pending Results 09/08/18 11:41: pCO2 34.6, pO2 76.7 L, HCO3 19.9 L, Total CO2 21.0, Base Excess -4.6 L, ABG pH 7.38, ABG O2 Sat (Measured) 95.2 09/08/18 12:07: Sodium 140, Plasma Sodium 141, Potassium 3.7, Chloride 107 H, Carbon Dioxide 21.5 L, Anion Gap 15.2 H, BUN 16, Creatinine 1.05, Est GFR (Non- Af Amer) 54 L D, BUN/Creatinine Ratio 15.2, Random Glucose 153 H, Calcium 8.9, Calcium Adj for Albumin 9.5, Total Bilirubin 0.9, AST 24, ALT 13 L, Alkaline Phosphatase 129, Troponin I 0.438 H*, B-Natriuretic Peptide 1139 H, Total Protein 6.8, Albumin 2.9 L 09/08/18 12:33: WBC 17.6 H, RBC 4.27, Hgb 9.5 L, Hct 31.7 L, MCV 74.2 L, MCH 22.2 L, MCHC 30.0 L, RDW 19.5 H, Plt Count 339, MPV 11.0, Immature Gran % (Auto) 1.00 H, Immature Gran # (Auto) 0.18 H, Neutrophils % 76.4 H, Lymphocytes % 13.5 L, Monocytes % 6.5, Eosinophils % 2.3, Basophils % 0.3, Nucleated RBC % 0.0, Neutrophils # 13.5 H, Lymphocytes # 2.37, Monocytes # 1.1 H, Eosinophils # 0.4, Absolute Basophils 0.1 09/08/18 14:25: Lactic Acid, Venous 2.6 H* 09/09/18 05:20: WBC 10.4 D, RBC 3.46 L, Hgb 8.3 L, Hct 27.9 L, MCV 74.0 L, MCH 22.3 L, MCHC 30.1 L, RDW 19.5 H, Plt Count 340, MPV 10.5, Immature Gran % (Auto) 0.40, Immature Gran # (Auto) 0.04 H, Neutrophils % 52.5, Lymphocytes % 29.1, Monocytes % 8.0, Eosinophils % 9.6 H, Basophils % 0.4, Nucleated RBC % 0.0, Neutrophils # 5.5, Lymphocytes # 3.03, Monocytes # 0.8, Eosinophils # 1.0 H, Absolute Basophils 0.0 09/09/18 05:20: Sodium 140, Plasma Sodium 140, Potassium 3.5, Chloride 104, Carbon Dioxide 24.5, Anion Gap 15.0 H, BUN 16, Creatinine 1.19, Est GFR (Non-Af Amer) 47 L, BUN/Creatinine Ratio 13.4, Random Glucose 103 D, Calcium 8.6, Calcium Adj for Albumin 9.5, Total Bilirubin 0.9, AST 24, ALT 9 L, Alkaline Phosphatase 105, Total Protein 6.0 L, Albumin 2.5 L Discharge Location: Home Disposition: Home self-care Condition: Fair Discharge Activity: Activity as tolerated Discharge Diet: Low salt Referrals: Chente Plata DO [Primary Care Provider] - One Week Problem Oriented Discharge Instructions to Patient/Family: CHF Patient Instructions, Community-Acquired Pneumonia, Adult, [id number] Additional Patient Instructions (free text): -Please make TCM appointment unless mcfp discharge. Thank you! Dorothy @ [phone]. Prescriptions (Any new or edited meds): Azithromycin 250 mg PO DAILY #4 tab Cefdinir [Omnicef] 300 mg PO Q12H #20 cap Complete Home Medications List: Complete Home Medication List: Multivitamin [Animal Shapes] 1 ea PO DAILY 01/10/15 Folic Acid 0.8 mg PO DAILY 05/29/15 Lisinopril [Zestril] 10 mg PO DAILY 05/29/15 epinephrine 0.3 mg/0.3 mL injection, auto-injector 0.3 mg IM Q10-15M PRN #1 ea 01/29/18 Nitroglycerin 0.4 mg SL PRN PRN MDD 3 02/01/18 ascorbic acid (vitamin C) 500 mg capsule 1 tab PO DAILY 02/06/18 blood sugar diagnostic strips See Dose Instructions .ROUTE .MEDSUPPLY #20 ea 02/06/18 cholecalciferol (vitamin D3) 400 unit capsule 400 unit PO DAILY 02/06/18 loratadine-pseudoephedrine ER 10 mg-240 mg tablet,extended [id number] 1 tab PO DAILY #90 tab 02/12/18 carvedilol 3.125 mg tablet 12.5 mg PO BID #180 tab 05/22/18 spironolactone 25 mg tablet 25 mg PO DAILY #90 tab 05/22/18 ferrous sulfate 324 mg (65 mg iron) tablet,delayed release 324 mg PO BID #60 tab 07/13/18 furosemide 80 mg tablet 160 mg PO DAILY tab 07/13/18 gabapentin 300 mg capsule 300 mg PO HS #30 cap 07/13/18 mupirocin 2 % topical ointment 1 applic TP BID #30 g 07/13/18 glipizide ER 5 mg tablet, extended release 24 hr 5 mg PO DAILY #90 tab 08/28/18 pantoprazole 20 mg tablet,delayed release 20 mg PO DAILY #90 tab 08/28/18 atorvastatin 20 mg tablet 40 mg PO DAILY #180 tab 09/02/18 clopidogrel 75 mg tablet 75 mg PO DAILY #90 tab 09/02/18 Acetaminophen [Tylenol] 1,000 mg PO Q6H PRN tab 09/09/18 Azithromycin 250 mg PO DAILY #4 tab 09/09/18 Azithromycin [Zithromax] 250 mg PO DAILY #4 tab 09/09/18 Cefdinir [Omnicef] 300 mg PO Q12H #20 cap 09/09/18
[2018-09-09 11:26] VITALS: BP 133/49
[2018-09-09] MEDS ORDERED: AZITHROMYCIN 250 MG TABLET PO SCH (15:40)
== END 2018-09-09 11:57 | disposition home or self-care (01) ==
LOC: ER 11:19 → MS 15:29 → INTOOBSV 15:29 → MS 16:00
PROVIDERS: ADMIT Family Medicine; ATTEND Family Medicine
CPT/HCPCS: 36415; 36600; 70450; 71010; 71045; 72125; 80053; 82803; 83519; 83605; 83880; 84484; 85025; 87040; 93005; 96365; 96375; 99285; G0378